=== PATIENT | female | born 1980 | race Caucasian/White ===

== ENCOUNTER 2016-12-18 10:29 | Day surgery (SDC) | payer BC ==
--- NOTE | ~2016-12-18 | EGD ---
EGD REPORT [facility] [address] [place]. [address] NAME: FIORELLA MCGUIRE : 80 [place] : [place] [facility] [place]#: [id number] AGE: 36 ADM/REG DATE : 12/18/16 MR#: [id number] REPORT SERV DATE: 12/18/16 DICTATED BY: ALMA DELIA BENITO DATE: 12/18/16 REPORT STATUS : Draft TRANSCRIBED BY: Code [facility] DATE: 12/18/16 Endoscopy Center Patient Name: Fiorella Mcguire Date of : 1980 Attending MD: ALMA DELIA BENITO MD Procedure Date No Time: 12/18/2016 Procedure: Colonoscopy Indications: Lower abdominal pain, FH of Colon Cancer -distant relative, Constipation Referring MD: CHRISTA TOLEDO JR. Medicines: Propofol per Anesthesia Complications: No immediate complications. Estimated blood loss: None. Procedure: Pre-Anesthesia Assessment: - After reviewing the risks and benefits, the patient was deemed in satisfactory condition to undergo the procedure. - Prior to the procedure, a History and Physical was performed, and patient medications and allergies were reviewed. The patient's tolerance of previous anesthesia was also reviewed. The risks and benefits of the procedure and the sedation options and risks were discussed with the patient. All questions were answered, and informed consent was obtained. Prior Anticoagulants: The patient has taken no previous anticoagulant or antiplatelet agents. ASA Grade Assessment: I - A normal, healthy patient. After reviewing the risks and benefits, the patient was deemed in satisfactory condition to undergo the procedure. After I obtained informed consent, the scope was passed under direct vision. Throughout the procedure, the patient's blood pressure, pulse, and oxygen saturations were monitored continuously. The CF [id number] was introduced through the anus and advanced to the terminal ileum, with identification of the appendiceal orifice and IC valve. The colonoscopy was somewhat difficult due to significant looping and a tortuous colon. Successful completion of the procedure was aided by straightening and shortening the scope to obtain bowel loop reduction and applying abdominal pressure. The ileocecal valve, appendiceal orifice and terminal ileum were photographed. The patient tolerated the procedure well. The quality of the bowel preparation was adequate. The bowel preparation used was polyethylene glycol (PEG). Scope withdrawal time was 6 minutes. EGD REPORT [place] [address] [place]. [address] NAME: FIORELLA MCGUIRE : [birth year] STATUS : REG [facility]#: [id number] AGE: 36 ADM/REG DATE : 12/18/16 MR#: [id number] REPORT SERV DATE: 12/18/16 DICTATED BY: ALMA DELIA BENITO DATE: 12/18/16 REPORT STATUS : Draft TRANSCRIBED BY: [facility] DATE: 12/18/16 Findings: The perianal and digital rectal examinations were normal. Pertinent negatives include normal sphincter tone. The terminal ileum appeared normal. The entire examined colon appeared normal on direct and retroflexion views. Impression: - The examined portion of the ileum was normal. - The entire examined colon is normal on direct and retroflexion views. - Irritable bowel syndrome with constipation. Recommendation: - Discharge patient to home (ambulatory). - Return to previous diet. - Continue present medications including Linzess 290 mcg and Miralax 17 grams daily. - Repeat colonoscopy at age 50 for screening purposes. - Office follow-up as needed. - Patient has a contact number available for emergencies. The signs and symptoms of potential delayed complications were discussed with the patient. Return to normal activities tomorrow. Written discharge instructions were provided to the patient. Procedure Code(s): --- Professional --- 37410, Colonoscopy, flexible, proximal to splenic flexure; diagnostic, with or without collection of specimen(s) by brushing or washing, with or without colon decompression (separate procedure) Diagnosis Code(s): --- Professional --- K58.9, Irritable bowel syndrome without diarrhea R10.30, Lower abdominal pain, unspecified Z80.0, Family history of malignant neoplasm of digestive organs K59.00, Constipation, unspecified CPT copyright 2013 [employer]. All rights reserved. The codes documented in this report are preliminary and upon clock and watch hands painter review may be revised to meet current compliance requirements. ALMA DELIA BENITO MD 12/18/2016 1:47 PM This report has been signed electronically. EGD REPORT [facility] [address] [address] NAME: FIORELLA MCGUIRE : [birth year] [place] [facility] [place]#: [id number] AGE: 36 ADM/REG DATE : 12/18/16 MR#: [id number] REPORT SERV DATE: 12/18/16 DICTATED BY: ALMA DELIA BENITO DATE: 12/18/16 REPORT STATUS : Draft TRANSCRIBED BY: [employer] DATE: 12/18/16 Number of Addenda: 0 Note Initiated On: 12/18/2016 12:56 PM Scope Withdrawal Time 0 hours 7 minutes 10 seconds [address] [id number]
--- NOTE | ~2016-12-18 | EGD ---
EGD REPORT [facility] [address] [address] NAME: FIORELLA MCGUIRE : [birth year] STATUS : REG [facility] PAT#: [id number] AGE: 36 ADM/REG DATE : 12/18/16 MR#: [id number] REPORT SERV DATE: 12/18/16 DICTATED BY: DATE: REPORT STATUS : Draft TRANSCRIBED BY: [employer] DATE: 12/18/16 Endoscopy Center Patient Name: Fiorella Mcguire Date of : 1980 Attending MD: ALMA DELIA BENITO MD Procedure Date No Time: 12/18/2016 Procedure: Upper GI endoscopy Indications: Gastro-esophageal reflux disease Referring MD: CHRISTA TOLEDO JR. Medicines: Propofol per Anesthesia Complications: No immediate complications. Estimated blood loss: None. Procedure: Pre-Anesthesia Assessment: - After reviewing the risks and benefits, the patient was deemed in satisfactory condition to undergo the procedure. - Prior to the procedure, a History and Physical was performed, and patient medications and allergies were reviewed. The patient's tolerance of previous anesthesia was also reviewed. The risks and benefits of the procedure and the sedation options and risks were discussed with the patient. All questions were answered, and informed consent was obtained. Prior Anticoagulants: The patient has taken no previous anticoagulant or antiplatelet agents. ASA Grade Assessment: I - A normal, healthy patient. After reviewing the risks and benefits, the patient was deemed in satisfactory condition to undergo the procedure. After obtaining informed consent, the endoscope was passed under direct vision. Throughout the procedure, the patient's blood pressure, pulse, and oxygen saturations were monitored continuously. The GIF [id number] was introduced through the mouth, and advanced to the jejunum. The upper GI endoscopy was accomplished without difficulty. The patient tolerated the procedure well. Findings: The examined esophagus was normal. The entire examined stomach and gastroesophageal junction (on retroflexion) were normal. The examined duodenum was normal. Biopsies were taken with a cold forceps for histology. Estimated blood loss: none. Impression: - Normal esophagus. - Normal stomach and gastroesophageal junction. EGD REPORT [address] [address] NAME: FIORELLA MCGUIRE : [birth year] STATUS : REG [facility]#: [id number] AGE: 36 ADM/REG DATE : 12/18/16 MR#: [id number] REPORT SERV DATE: 12/18/16 DICTATED BY: DATE: REPORT STATUS : Draft TRANSCRIBED BY: [employer] DATE: 12/18/16 - Normal examined duodenum. Biopsied. - Non-erosive esophageal reflux (NERD) disease present. Recommendation: - Discharge patient to home (ambulatory). - Return to previous diet. - Continue present medications including Prevacid (lansoprazole) 30 mg daily before meal. - Await pathology results. - Perform a colonoscopy today. - Patient has a contact number available for emergencies. The signs and symptoms of potential delayed complications were discussed with the patient. Return to normal activities tomorrow. Written discharge instructions were provided to the patient. Procedure Code(s): --- Professional --- 72033, Esophagogastroduodenoscopy, flexible, transoral; with biopsy, single or multiple Diagnosis Code(s): --- Professional --- K21.9, Gastro-esophageal reflux disease without esophagitis CPT copyright 2013 [employer]. All rights reserved. The codes documented in this report are preliminary and upon vacuum frame operator review may be revised to meet current compliance requirements. ALMA DELIA BENITO MD 12/18/2016 1:24 PM This report has been signed electronically. Number of Addenda: 0 Note Initiated On: 12/18/2016 1:01 PM Scope Withdrawal Time 0 hours 0 minutes 0 seconds [id number] [place] [id number]
[~2016-12-18 10:29] MED LIST: LINZESS 290 M290 MCG PO; REFLUX MED
== END 2016-12-18 23:59 | disposition home or self-care (01) ==
LOC: DMU 10:29
PROVIDERS: Internal Medicine Gastroenterology
PROC: 0DB98ZX Excision of Duodenum, Via Natural or Artificial Opening Endoscopic, Diagnostic (ICD-10-PCS; principal; 2016-12-18 12:15)
PROC: 0DJD8ZZ Inspection of Lower Intestinal Tract, Via Natural or Artificial Opening Endoscopic (ICD-10-PCS; 2016-12-18 12:15)
DX: K58.9 Irritable bowel syndrome, unspecified (principal); Z80.0 Family history of malignant neoplasm of digestive organs; K59.00 Constipation, unspecified; K21.9 Gastro-esophageal reflux disease without esophagitis; Z79.899 Other long term (current) drug therapy; Z98.890 Other specified postprocedural states
CPT/HCPCS: 84703; 88305